=== PATIENT | female | born 1995 | race Caucasian/White ===

== ENCOUNTER 2019-03-21 18:54 | Observation (INO) | payer OTHER ==
[~2019-03-21] VITALS: Ht 162.6 cm; Wt 71.7 kg
[2019-03-21 20:19] VITALS: BP 108/63
== END 2019-03-21 21:12 | disposition home or self-care (01) ==
LOC: 4S 19:41
PROVIDERS: ADMIT Obstetrics & Gynecology; ATTEND Obstetrics & Gynecology
DX: O21.2 Late vomiting of pregnancy (principal); O26.893 Other specified pregnancy related conditions, third trimester; R19.7 Diarrhea, unspecified; R10.9 Unspecified abdominal pain; Z3A.33 33 weeks gestation of pregnancy
CPT/HCPCS: 81002; G0378